=== PATIENT | female | born 1980 | race Caucasian/White ===

== ENCOUNTER → 2020-10-03 10:13 | Outpatient (BNVA) | payer MEDICAID, SELFPAY | PROVIDERS: PCP Nurse Practitioner Family; Visit Provider Physician Assistant | DX: E66.01 Morbid (severe) obesity due to excess calories (principal); Z68.42 Body mass index [BMI] 45.0-49.9, adult; R19.7 Diarrhea, unspecified; E03.9 Hypothyroidism, unspecified; Z71.3 Dietary counseling and surveillance | CPT/HCPCS: 99202; 99211 ==

== ENCOUNTER 2020-10-03 16:11 | Outpatient (REF) | payer MEDICAID, SELFPAY ==
[2020-10-04 14:17] LABS: H Pylori Breath Test NOT DETECTED (NOT DETECTED)
== END 2020-10-03 16:12 | disposition home or self-care (01) ==
LOC: HO.LNP 16:11
PROVIDERS: Visit Provider Physician Assistant
DX: Z01.818 Encounter for other preprocedural examination (principal); E66.01 Morbid (severe) obesity due to excess calories
CPT/HCPCS: 83013

== ENCOUNTER 2020-10-18 09:54 | Outpatient (REF) | payer MEDICAID, SELFPAY ==
[2020-10-18 11:14] LABS: MANUAL DIFF FLAG NO
[2020-10-18 11:22] LABS: Basophils Percent Auto 0.5 % (0-2); Eosinophils Absolute Auto 0.1 X10*3/uL (0.0-0.4); Eosinophils Percent Auto 2.3 % (0-4); Hematocrit 39.6 % (37-47); Hemoglobin 12.2 g/dl (12.0-16.0); Imm Gran Abs Auto 0.02 X10*3/uL (0.00-0.03); Imm Gran Pct Auto 0.3 % (0.0-0.4); Lymphocytes Absolute Auto 1.4 X10*3/uL (1.2-4.9); Mean Corpuscular HGB Conc 30.8 g/dl (31.0-35.0); Mean Corpuscular Hemoglobin 26.6 pg (27.0-33.0); Mean Corpuscular Volume 86.5 fL (80-98); Mean Platelet Volume 11.4 fL (9.4-12.3); Monocytes Absolute Auto 0.4 X10*3/uL (0.1-1.2); Neutrophils Absolute Auto 4.2 X10*3/uL (2.0-8.3); Neutrophils Percent Auto 67.9 % (45-73); Platelet Count 300 X10*3/uL (160-400); Red Blood Count 4.58 X10*6/uL (4.20-5.50); Red Cell Distribution Width 14.3 % (11.0-16.0); White Blood Count 6.2 X10*3/uL (4.8-10.8)
[2020-10-18 11:40] LABS: Alanine Aminotransferase 23 U/L (0-31); Albumin Level 4.1 g/dL (3.5-5.0); Alkaline Phosphatase 81 U/L (39-117); Anion Gap 13 (12-20); Aspartate Amino Transferase 16 U/L (5-31); Bilirubin Total 0.5 mg/dL (0.0-1.0); Blood Urea Nitrogen 10 mg/dL (9-16); C Reactive Protein 2.37 mg/dL (< or = 0.50); Carbon Dioxide 23 mmol/L (22-29); Chloride 107 mmol/L (96-108); Cholesterol 208 mg/dL; Estimated Glomerular Filt Rate > 60; Glucose Random 90 mg/dL (60-115); HDL Cholesterol 59 mg/dL; Iron 42 mcg/dL (30-160); LDL Cholesterol Calculated 131 mg/dl; Percent Iron Saturation 13 % (15-50); Potassium 3.9 mmol/L (3.3-5.1); Sodium 139 mmol/L (135-145); Total Iron Binding Capacity 326 mcg/dL (228-428); Triglycerides 92 mg/dL; Unsaturated Iron Binding 284 ug/dL
[2020-10-18 11:45] LABS: Estimated Average Glucose 105 mg/dL; Hemoglobin A1c % 5.3 %
[2020-10-18 12:02] LABS: Ferritin 12 ng/mL (10-122); TSH reflex Free T4 1.25 uIU/mL (0.32-4.0); Vitamin D 25-OH Total 17.8 ng/mL (>30)
[2020-10-20 04:35] LABS: Folate 10.8 ng/mL (> or = 4.0); Vitamin B12 578 pg/mL (200-900)
[2020-10-20 11:47] LABS: Insulin Level Total 10.6 uIU/mL
[2020-10-21 10:02] LABS: PTHI 97 pg/mL (14-64)
[2020-10-21 13:17] LABS: Zinc 61 mcg/dL (60-130)
[2020-10-22 17:11] LABS: Vitamin A 37 mcg/dL (38-98)
[2020-10-24 10:07] LABS: Vitamin B1 7 nmol/L (8-30)
== END 2020-10-18 09:55 | disposition home or self-care (01) ==
LOC: HO.LAB 09:54
PROVIDERS: PCP Nurse Practitioner Family; Visit Provider Physician Assistant
DX: Z01.818 Encounter for other preprocedural examination (principal); E66.01 Morbid (severe) obesity due to excess calories
CPT/HCPCS: 36415; 80053; 80061; 82306; 82607; 82728; 82746; 83036; 83525; 83540; 83970; 84425; 84443; 84590; 84630; 85025; 86140

== ENCOUNTER → 2020-11-03 08:08 | Outpatient (BNVA) | payer MEDICAID, SELFPAY | PROVIDERS: PCP Nurse Practitioner Family; Visit Provider Dietitian, Registered | DX: E66.01 Morbid (severe) obesity due to excess calories (principal) | CPT/HCPCS: 97802 ==

== ENCOUNTER 2020-11-11 14:53 | Outpatient (REF) | payer MEDICAID, SELFPAY ==
[2020-11-12 15:27] LABS: H Pylori Breath Test NOT DETECTED (NOT DETECTED)
== END 2020-11-11 14:54 | disposition home or self-care (01) ==
LOC: HO.LNP 14:53
PROVIDERS: Physician Assistant; PCP Nurse Practitioner Family; Visit Provider Surgery
DX: Z01.818 Encounter for other preprocedural examination (principal); E66.01 Morbid (severe) obesity due to excess calories; E55.9 Vitamin D deficiency, unspecified; E03.9 Hypothyroidism, unspecified; F41.0 Panic disorder [episodic paroxysmal anxiety]; Z68.42 Body mass index [BMI] 45.0-49.9, adult; Z91.018 Allergy to other foods; Z91.010 Allergy to peanuts; Z11.0 Encounter for screening for intestinal infectious diseases; Z79.899 Other long term (current) drug therapy
CPT/HCPCS: 83013; 99211; 99212

== ENCOUNTER 2020-11-13 11:07 | Outpatient (REF) | payer MEDICAID, SELFPAY ==
--- NOTE | ~2020-11-13 | XR_ITS ---
EXAMINATION: XR CHEST CLINICAL INFORMATION: Severe mild obesity COMPARISON: April 28, 2009 TECHNIQUE: 2 views of the chest were obtained. FINDINGS: No significant abnormality is noted involving the heart, lungs, mediastinum, bony thorax or soft tissues. XR/XR chest 2V IMPRESSION: No acute disease.
--- NOTE | 2020-11-13 11:27 | ECG_ITS ---
Test Reason : MORBID OBESITY Blood Pressure : / mmHG Vent. Rate : 068 BPM Atrial Rate : 068 BPM P-R Int : 140 ms QRS Dur : 084 ms QT Int : 386 ms P-R-T Axes : 010 021 009 degrees QTc Int : 410 ms Normal sinus rhythm Possible Inferior infarct , age undetermined ; could be normal variant Borderline ECG When compared with ECG of 28-APR-2009 18:00, No significant change was found Referred By: Kiarra Wong Electronically Signed By:KHUSHI HOYT
== END 2020-11-13 11:08 | disposition home or self-care (01) ==
LOC: HO.XRAY 11:07
PROVIDERS: PCP Nurse Practitioner Family; Visit Provider Physician Assistant
DX: Z01.818 Encounter for other preprocedural examination (principal); E66.01 Morbid (severe) obesity due to excess calories
CPT/HCPCS: 71046; 93005

== ENCOUNTER → 2020-11-25 08:42 | Outpatient (BNVA) | payer MEDICAID, SELFPAY | PROVIDERS: PCP Nurse Practitioner Family; Visit Provider Dietitian, Registered | DX: E66.9 Obesity, unspecified (principal); Z68.42 Body mass index [BMI] 45.0-49.9, adult | CPT/HCPCS: 97803 ==

== ENCOUNTER → 2020-12-17 08:12 | Outpatient (BNVA) | payer MEDICAID, SELFPAY | PROVIDERS: PCP Nurse Practitioner Family; Visit Provider Dietitian, Registered | DX: E66.01 Morbid (severe) obesity due to excess calories (principal) | CPT/HCPCS: 97803 ==

== ENCOUNTER 2023-11-11 10:43 | Outpatient (REF) | payer OTHER, SELFPAY ==
[2023-11-11 11:03] LABS: MANUAL DIFF FLAG NO
[2023-11-11 11:54] LABS: Basophils Percent Auto 0.5 % (0-2); Eosinophils Absolute Auto 0.1 X10*3/uL (0.0-0.4); Eosinophils Percent Auto 2.1 % (0-4); Hematocrit 39.5 % (37.0-47.0); Imm Gran Abs Auto 0.03 X10*3/uL (0.00-0.03); Imm Gran Pct Auto 0.5 % (0.0-0.4); Lymphocytes Absolute Auto 1.2 X10*3/uL (1.2-4.9); Lymphocytes Percent Auto 20.6 % (20-40); Mean Corpuscular HGB Conc 30.4 g/dl (31.0-35.0); Mean Corpuscular Hemoglobin 24.4 pg (27.0-33.0); Mean Corpuscular Volume 80.4 fL (80.0-98.0); Monocytes Absolute Auto 0.4 X10*3/uL (0.1-1.2); Monocytes Percent Auto 7.8 % (2-11); Neutrophils Absolute Auto 3.8 x10*3/uL (2.0-8.3); Neutrophils Percent Auto 68.5 % (45-73); Platelet Count 271 X10*3/uL (160-400); Red Blood Count 4.91 X10*6/uL (4.20-5.50); Red Cell Distribution Width 17.2 % (11.0-16.0); White Blood Count 5.6 X10*3/uL (4.8-10.8)
[2023-11-11 12:22] LABS: C Reactive Protein 2.85 mg/dL (< or = 0.50); Iron 30 mcg/dL (30-160); Percent Iron Saturation 10 % (15-50); Total Iron Binding Capacity 290 mcg/dL (228-428); Unsaturated Iron Binding 260 ug/dL
[2023-11-11 12:33] LABS: Erythrocyte Sedimentation Rate 20 MM/HR (0-20)
[2023-11-11 12:42] LABS: Ferritin 11 ng/mL (10-250)
[2023-11-11 12:46] LABS: Folate 7.8 ng/mL (> or = 4.0); Vitamin B12 363 pg/mL (200-900)
[2023-11-14 20:34] LABS: Immunoglobulin A 289 mg/dL (47-310)
[2023-11-14 20:43] LABS: Gliadin Deamidated IgA Ab <1.0 U/mL; Gliadin Deamidated IgG Ab <1.0 U/mL
[2023-11-14 20:48] LABS: Transglutaminase Ab IgG <1.0 U/mL; Transglutaminase IgA <1.0 U/mL
[2023-11-19 15:33] LABS: Endomysial IgA Antibody Negative (Negative)
== END 2023-11-11 10:44 | disposition home or self-care (01) ==
LOC: HO.LAB 10:43
PROVIDERS: PCP Internal Medicine Nephrology; Visit Provider Internal Medicine
DX: R19.8 Other specified symptoms and signs involving the digestive system and abdomen (principal); D64.9 Anemia, unspecified
CPT/HCPCS: 36415; 82607; 82728; 82746; 82784; 83540; 85025; 85652; 86140; 86231; 86258; 86364

== ENCOUNTER 2024-07-27 10:58 | Day surgery (SDC) | payer OTHER, SELFPAY ==
[2024-07-25 13:58] VITALS: BMI 42.0
--- NOTE | 2024-07-26 12:21 | HO.ANESPROP2 ---
Documented by User: Vashti Lewis NP 07/26/24 12:22 HPI - Anesthesia Eval Consult details Narrative: 44yo F for Colonoscopy Anesthesia Pre-Procedure Meds Is the patient on any of the following meds?: GLP1/DPP4 PMFSH Active Problems Active Problems: All Active Problems BMI 45.0-49.9, adult (Acute) Vitamin D deficiency (Acute) Diarrhea in adult patient (Acute) Pre-op evaluation (Acute) Morbid obesity (Acute) Past Medical History Medical History Anemia C. difficile colitis Anxiety Depression Seasonal allergies Panic anxiety syndrome Hypothyroid Family History Family History Mother Diabetes Hypertension Father Heart disease Brother No problems noted. Brother No problems noted. Brother No problems noted. Sister No problems noted. Son No problems noted. Son No problems noted. Surgical History Surgical History H/O colonoscopy History of esophagogastroduodenoscopy (EGD) Hx of hemorrhoidectomy Hx of oral surgery Hx of tubal ligation Hx of section Social History Social History Are you a primary care process manager to a significant other at home: No Do you presently have visiting nurse or other home services: No Alcohol intake: former Patient Tobacco Use Status: Never used Tobacco Have you been hit, kicked, punched, or otherwise hurt by someone within the past year? If so, by whom?: No Are you DNR?: No Advance Directives: No Advance Directives Information Provided: Yes Recently lost weight without trying: No Nutrition Risks: No Nutritional Risk FDLMP: currently Meds Allergies Allergy/AdvReac Type Severity Reaction Status Date / Time nut - unspecified [nut] Allergy Unknown SWELLING Verified 07/27/24 11:16 FRUIT Allergy Unknown ITCHING Uncoded 07/27/24 11:16 Peanuts, tree nuts, fruits, Allergy Unknown Anaphylaxis Uncoded 07/27/24 11:16 so Home Medications ?Medication ?Instructions ?Recorded ?Confirmed ?Last Taken ?Type epinephrine 0.3 mg/0.3 mL 0.3 mg IM Q10M PRN Anaphylaxis 10/03/20 07/25/24 Unknown History injection, auto-injector lorazepam 0.5 mg tablet 0.5 mg PO BEDTIME PRN Anxiety 10/03/20 07/25/24 Unknown History levothyroxine 112 mcg tablet 112 mcg PO DAILY 07/25/24 07/25/24 Unknown History tirzepatide (weight loss) 12.5 12.5 mg subcut QWEEK 07/25/24 07/25/24 07/17/24 History mg/0.5 mL subcutaneous pen injector (Zepbound) Exam Height,Weight and Vital Signs: Height 5 ft 3 in Weight 107.501 kg Assessment and Plan Assessment Anesthesia Assessment: Chart Reviewed Documented by User: Charissa Sparrow MD 07/27/24 12:17 PMFSH Past Medical History Medical History Anemia C. difficile colitis Anxiety Depression Seasonal allergies Panic anxiety syndrome Hypothyroid Family History Family History Mother Diabetes Hypertension Father Heart disease Brother No problems noted. Brother No problems noted. Brother No problems noted. Sister No problems noted. Son No problems noted. Son No problems noted. Surgical History Surgical History H/O colonoscopy History of esophagogastroduodenoscopy (EGD) Hx of hemorrhoidectomy Hx of oral surgery Hx of tubal ligation Hx of section History of Problems with Anesthesia: No Social History Social History Are you a primary care process manager to a significant other at home: No Do you presently have visiting nurse or other home services: No Alcohol intake: former Patient Tobacco Use Status: Never used Tobacco Have you been hit, kicked, punched, or otherwise hurt by someone within the past year? If so, by whom?: No Are you DNR?: No Advance Directives: No Advance Directives Information Provided: Yes Recently lost weight without trying: No Nutrition Risks: No Nutritional Risk FDLMP: currently Meds Allergies Allergy/AdvReac Type Severity Reaction Status Date / Time nut - unspecified [nut] Allergy Unknown SWELLING Verified 07/27/24 11:16 FRUIT Allergy Unknown ITCHING Uncoded 07/27/24 11:16 Peanuts, tree nuts, fruits, Allergy Unknown Anaphylaxis Uncoded 07/27/24 11:16 so Home Medications ?Medication ?Instructions ?Recorded ?Confirmed ?Last Taken ?Type epinephrine 0.3 mg/0.3 mL 0.3 mg IM Q10M PRN Anaphylaxis 10/03/20 07/25/24 Unknown History injection, auto-injector lorazepam 0.5 mg tablet 0.5 mg PO BEDTIME PRN Anxiety 10/03/20 07/25/24 Unknown History levothyroxine 112 mcg tablet 112 mcg PO DAILY 07/25/24 07/25/24 Unknown History tirzepatide (weight loss) 12.5 12.5 mg subcut QWEEK 07/25/24 07/25/24 07/17/24 History mg/0.5 mL subcutaneous pen injector (Zepbound) Exam Airway Mallampati Class: III TM Dist: >3cm Neck ROM: Full Loose/Missing/Broken Teeth: No Heart: RRR Lungs: CTA Assessment and Plan Assessment Anesthesia Assessment: Anesthesia Plan Discussed Final Anesthetic Review History of Problems with Anesthesia: No NPO: Yes ASA Class: III Final Preanesthetic Review: Meds/Allgs Chart Reviewed, Consent Obtained/Reviewed and Anes Risks/Benef Reviewed Patient Risk: Intermediate Procedure Risk: Low Anesthetic Plan Anesthetic Plan: MAC: Disposition: Standard PACU
[2024-07-27 11:12] VITALS: BMI 40.5
[2024-07-27] MEDS: Lactated Ringers 1,000 ML 100 ML IVCONT (11:18)
[2024-07-27 11:25] VITALS: BP 127/84; PULSE 91; RESP 18; TEMP 36.7; O2SAT 98
[2024-07-27 13:13] VITALS: BP 117/75; PULSE 86; RESP 18; TEMP 36.9; O2SAT 100
--- NOTE | 2024-07-27 13:21 | P.BOP_ITS ---
Brief Operative Note Date of Service: 07/27/24 Pre-op diagnosis: Screening Post-op diagnosis: other (Diverticulosis) Procedure: Colonoscopy to the cecum and TI Surgeon: Js Sullivan MD Anesthesia: MAC Was an Hospital Orderly used for this Procedure?: No Estimated blood loss (mL): 0 Pathology: none sent Condition: stable Disposition: PACU
[2024-07-27 13:34] VITALS: BP 132/90; PULSE 75; RESP 18; TEMP 36.9; O2SAT 100
--- NOTE | 2024-07-27 13:40 | OP_ITS ---
DATE OF SERVICE: 07/27/2024 SURGEON: Js Sullivan MD INDICATIONS: The patient presents for evaluation of colorectal cancer screening in regard to a previous history of a serrated colon polyp. Full consent has been obtained from her for this, including risks of bleeding and perforation. PREOPERATIVE DIAGNOSIS: POSTOPERATIVE DIAGNOSIS: PROCEDURE PERFORMED: Colonoscopy to the cecum and terminal ileum. ESTIMATED BLOOD LOSS: COMPLICATIONS: ANESTHESIA: Medications used, monitored anesthesia care. ASSISTANTS: SPECIMENS: PREOPERATIVE DIAGNOSES: Personal history of a serrated colon polyp and colorectal cancer screening. POSTOPERATIVE DIAGNOSES: Personal history of a serrated colon polyp and colorectal cancer screening, occasional sigmoid diverticulosis, internal hemorrhoids. DESCRIPTION OF PROCEDURE: The patient was placed in the left lateral decubitus position. The digital rectal exam revealed no abnormalities. The Olympus video pediatric colonoscope was entered into the rectum and advanced easily to the cecum. Once in the cecum, I did identify normal-appearing cecal pouch with appendiceal orifice and a normal-appearing ileocecal valve. The terminal ileum was cannulated and appeared normal. The scope was withdrawn back in the colon. The entire cecum and ileocecal valve appeared normal. The scope was slowly withdrawn assessing all mucosal surfaces carefully. Preparation was excellent. I did not visualize any sign of polyps, colitis, nor angiodysplasia. There was an occasional diverticulum in the sigmoid colon. In the rectum, scope was retroflexed visualizing internal hemorrhoids, but no other pathology. The rectal mucosa appeared normal. The scope was straightened and withdrawn from the patient. She tolerated the procedure well and was returned to the recovery area in stable condition. IMPRESSION: 1. Internal hemorrhoids. 2. Occasional sigmoid diverticulosis. PLAN: Given her previous history, I would recommend a followup colonoscopy in 5 years for further screening. She will otherwise see me on a p.r.n. basis. She was advised to continue her fiber supplement in regard to the underlying irritable bowel syndrome. MD JAMILAH Appiah/DARY / [phone]
== END 2024-07-27 14:01 | disposition home or self-care (01) ==
PROVIDERS: PCP Internal Medicine Nephrology; Visit Provider Internal Medicine
PROC: 0DJD8ZZ Inspection of Lower Intestinal Tract, Via Natural or Artificial Opening Endoscopic (ICD-10-PCS; CPT 45378; principal; 2024-07-27 13:00)
DX: Z12.11 Encounter for screening for malignant neoplasm of colon (principal); K57.30 Diverticulosis of large intestine without perforation or abscess without bleeding; K64.8 Other hemorrhoids; Z86.0101 Personal history of adenomatous and serrated colon polyps; E03.9 Hypothyroidism, unspecified; E55.9 Vitamin D deficiency, unspecified; E66.01 Morbid (severe) obesity due to excess calories; Z68.41 Body mass index [BMI] 40.0-44.9, adult; Z79.899 Other long term (current) drug therapy
CPT/HCPCS: 45378; J2003; J2704

== ENCOUNTER 2025-01-15 09:12 | Outpatient (REF) | payer OTHER, SELFPAY ==
--- OUTSIDE RECORDS SUMMARY | 2024-07-27 09:00 | XMS_ITS ---
Author Organization [facility] Address [address] [place] [address] Care Team Providers Care Wheat Cleaner Name Role Phone Timothy Loving M.D Primary Care Provider Js Roblero [phone] REASON FOR VISIT screening,serrated polyp of colon Encounters Encounter Location Date Provider Diagnosis [facility] Outpatient [address] [place], [place] [id number] 07/27/2024 Js Sullivan Colon cancer scree cathryn Z12.11 ; Personal history of colonic polyps Z86.0100 ; Diverticulosis of large intestine without perforation or abscess without bleeding K57.30 and Other hemorrhoids K64.8 Assessments Encounter Date Diagnosis (ICD Code) Assessment Notes Treatment Notes Treatment Clinical Notes Section Notes 07/27/2024 Colon cancer screening (ICD-10 - Z12.11) 07/27/2024 Personal history of colonic polyps (ICD-10 - Z86.0100) 07/27/2024 Diverticulosis of large intestine without perforation or abscess without bleeding (ICD-10 - K57.30) 07/27/2024 Other hemorrhoids (ICD-10 - K64.8) Plan Of Treatment No Information Progress Notes * VIOLETTA MADSENDOB:1980 (44 yo F)Acc No.[id number]:07/27/2024 COLON WITH MAC Patient: Brittany ALSTONCELIA VIOLETTA Provider: Brittany Sullivan MD :1980 A ge:44 Y S ex:Female Date:07/27/2024 Address:[address] [place], [place] [id number] Pcp:Timothy Loving M.D Subjective: * Chief Complaints: * 1 . Screening,serrated polyp of colon. * Medical History: Objective: * Vitals: Assessment: * Assessment: 1. C olon cancer screening - Z12.11 (Primary) 2 . P ersonal history of colonic polyps - Z86.0100 3 . D iverticulosis of large intestine without perforation or abscess without bleeding - K57.30 4 . O ther hemorrhoids - K64.8 ? Plan: * Treatment: * Procedure Codes: 4 5378 DIAGNOSTIC COLONOSCOPY, Modifiers: 33 , 0529F INTRVL 3+YRS PTS CLNSCP DOCD, 0528F RCMND FLW-UP 10 YRS DOCD * * The named appointment provid er may or may not be the originator of this progress note, and it is not deemed complete until electronically signed by the appointment provider. Sign off status: Pending * Provider: Brittany Sullivan MD Date: 0 07/27/2024 Generated for Rashid pimentel/Vj/Kikaitting on: 0 01/15/2025 10:37 AM EDT
--- NOTE | ~2025-01-15 | US_ITS ---
EXAMINATION: US TRIPLEX LOWER EXTREMITY, LEFT CLINICAL INFORMATION: post foam injection COMPARISON: None available. TECHNIQUE: Color-flow triplex imaging with spectral analysis and compression Doppler were performed on the left lower extremity. FINDINGS: Respiratory variation, normal compression and augmented flow are noted throughout the left lower extremity. The visualized common femoral vein, superficial femoral vein, profunda femoral vein, popliteal vein and midcalf peroneal and posterior tibial venous segments show no evidence of deep venous thrombosis. No reflux was demonstrated in the greater saphenous vein in the thigh post treatment. US/US venous duplex LE LT IMPRESSION: No evidence of deep venous thrombosis involving the left lower extremity. No greater saphenous vein reflux. Electronically signed by: Gabe Casas MD 01/15/2025 09:56 AM EDT
--- OUTSIDE RECORDS SUMMARY | 2025-01-15 10:37 | XMS_ITS | Encounter Summary ---
Author Organization [facility] Address [address] [facility] [address] [place] [address] Phone Care Team Providers Care Director Broadcast Name Role Phone Juan Reyes MD Primary Care Provider Kylie Harding MD Unavailable [phone] Juan Reyes MD Unavailable Darlyn Lockett DRUM REEL CUTTER Primary Care Provider Varun Funez MD, MPH Unavailable [phone] Austen Shi MD Unavailable Daiana Britt MD Unavailable + Varun Funez MD, MPH Unavailable Reason for Referral * MRI/CAT Scan - Closed Specialty Diagnoses / Procedures Referred By Jaquan t Referred To Contact Radiology Diagnoses Facial numbness Numbness of arm Procedures MRI Brain Miguel Walker MD Phone: tel: fax: [email or web address] Referral ID Status Reason Start Date Expiration Date Visits Re quested Visits Authorized [id number] Closed 08/04/2017 08/04/2018 1 1 Encounter Details Date Type Department Care Team (Late st Contact Info) Description 07/27/2017 Ancillary Orders Virtual Department [address] [place] [address] Miguel Walker MD [address] [place] [address], [address] [place], [place] [id number] [email or web address] Facial numbness; Numbness of arm Social History Tobacco Use Types Packs/Day Years Used Date Smoking Tobacco: Never Assessed Comments Unknown Sex and Gender Information Value Date Recorded Sex Assigned at Female 08/12/2017 5:10 PM EDT Legal Sex Female 9:20 PM EDT Gender Identity Female 08/12/2017 5:10 PM EDT Sexual Orientation Straight 08/12/2017 5: 10 PM EDT documented as of this encounter Plan of Treatment Not on file documented as of this encounter Results * MRI BRAIN WITHOUT CONTRAST (08/09/2017 10:22 AM EDT) Anatomical Region Laterality Modality Head Magnetic Resonan ce 08/09/2017 11:5 6 AM EDT Impressions 08/09/2017 12:01 PM EDT Normal MRI appearance of the brain. No evidence of demyelinating disease nor other explanation of facial/upper extremity numbness. POS - [id number] Narrative 08/09/2017 12:01 PM EDT TECHNIQUE: 1.5 Aissatou high-field MRI scanner. Axial T1, T2, T2*, T2 FLAIR and diffusion-weighted imaging with ADC map, sagittal FLAIR and T1 sequences were obtained. No comparison FINDINGS: No signal changes suggestive of demyelinating disease in either hemisphere or the posterior fossa. No signal abnormalities indicative of ischemia, infarct, hemorrhage, mass or an inflammatory process. Normal ventricular size and configuration. Basilar cisterns widely patent. No evidence of elevated intracranial pressure. No pituitary, pineal region or intraorbital pathology. Normal flow-voids in the major vessels of the [place]. Visualized proximal cranial nerves are unremarkable. No inflammatory changes in the paranasal sinuses or mastoid air cells. Procedure Note Timothy Mack MD - 08/09/2017 TECHNIQUE: 1.5 Aissatou high-field MRI scanner. Axial T1, T2, T2*, T2 FLAIR and diffusion-weighted imaging with ADC map,sagittal FLAIR and T1 sequences were obtained. No comparison FINDINGS: No signal changes suggestive of demyelinating disease in either hemisphereor the posterior fossa. No signal abnormalities indicative of ischemia, infarct, hemorrhage, massor an inflammatory process. Normal ventricular size and configuration. Basilar cisterns widely patent.No evidence of elevated intracranial pressure. No pituitary, pineal region or intraorbital pathology. Normal flow-voids in the major vessels of the [place]. Visualized proximal cranial nerves are unremarkable. No inflammatory changes in the paranasal sinuses or mastoid air cells. IMPRESSION: Normal MRI appearance of the brain. No evidence of demyelinating diseasenor other explanation of facial/upper extremity numbness. POS - [id number] Miguel Walker MD IMG MR HEAD/NECK Final Resul t documented in this encounter Visit Diagnoses Diagnosis Facial numbness Disturbance of skin sensation Numbness of arm Disturbance of skin sensation Facial numbness Disturbance of skin sensation Numbness of arm Disturbance of skin sensation documented in this encounter Additional Health Concerns Infection Onset Date Last Indicated Resolved Time C. diff 09/29/2020 09/29/2020 10/29/2020 1:26 AM EDT documented as of this encounter Care Teams Director Broadcast Relationship Specialty Start Date End Date Juan Reyes MD PCP - General 02/22/17 02/11/18 Darlyn Lockett NP [address] [place] [address] PCP - General Family Medicine 02/12/18 Kylie Harding MD [address] [place] [address] Insurance Assigned Provider 08/06/17 09/10/17 Juan Reyes MD [address] [place] [address] [email or web address] Insurance Assigned Provider 09/10/17 09/09/18 Varun Funez MD, MPH [address] [place] [address] Insurance Assigned Provider 11/15/20 03/14/21 Austen Shi MD [address] [phone] [email or web address] Insurance Assigned Provider 03/14/21 07/12/21 Daiana Britt MD [address] [place] [id number] [email or web address] Insurance Assigned Provider 07/12/21 07/17/22 Varun Funez MD, MPH [address] [place] [address] Insurance Assigned Provider 07/17/22 01/15/23 documented as of this encounter Additional Source Comments The information contained in this document represents components of the legal health record. It is not the complete legal health record.[facility]
--- OUTSIDE RECORDS SUMMARY | 2025-01-15 10:37 | XMS_ITS | Encounter Summary ---
Author Organization [facility] Address [address] [facility] [address] [place] [address] Phone Care Team Providers Care Forensic Artist Name Role Phone Darlyn Lockett NP Primary Care Provider [phone] Varun Funez MD, MPH Unavailable [phone] Austen Shi MD Unavailable Daiana Britt MD Unavailable + Varun Funez MD, MPH Unavailable [phone] Encounter Details Date Type Department Care Team (Late st Contact Info) Description 10/02/2019 Procedure Pass [facility] Endoscopy Admitting Dept Virtual Department [address] [place] [address] Social History Tobacco Use Types Packs/Day Years Used Date Smoking Tobacco: Never Smokeless Tobacco: Never Alcohol Use Standard Drinks/Week Comments No 0 (1 standard drink = 0.6 oz pur e alcohol) Comments No Sex and Gender Information Value Date Recorded Sex Assigned at Female 08/12/2017 5:10 PM EDT Legal Sex Female 9:20 PM EDT Gender Identity Female 08/12/2017 5:10 PM EDT Sexual Orientation Straight 08/12/2017 5: 10 PM EDT documented as of this encounter Plan of Treatment Not on file documented as of this encounter Visit Diagnoses Not on filedocumented in this encounter Additional Health Concerns Infection Onset Date Last Indicated Resolved Time C. diff 09/29/2020 09/29/2020 10/29/2020 1:26 AM EDT documented as of this encounter Care Teams Forensic Artist Relationship Specialty Start Date End Date Darlyn Lockett IMPROVEMENT ANALYST PCP - General Family Medicine 02/12/18 Varun Funez MD, MPH [address] [place] [address] Insurance Assigned Provider 11/15/20 03/14/21 Austen Shi MD [address] [phone] [email or web address] Insurance Assigned Provider 03/14/21 07/12/21 Daiana Britt MD [address] [place] [address] [email or web address] Insurance Assigned Provider 07/12/21 07/17/22 Varun Funez MD, MPH [address] [place] [address] Insurance Assigned Provider 07/17/22 01/15/23 documented as of this encounter Additional Source Comments The information contained in this document represents components of the legal health record. It is not the complete legal health record.[facility]
--- OUTSIDE RECORDS SUMMARY | 2025-01-15 10:37 | XMS_ITS | Encounter Summary ---
Author Organization [facility] Address [address] [facility] [address] [place] [address] Phone Care Team Providers Care Jinrikisha Driver Name Role Phone Juan Reyes MD Primary Care Provider [phone] Kylie Harding MD Unavailable Juan Reyes MD Unavailable Darlyn Lockett CHINESE MEDICINE PRACTITIONER Primary Care Provider Varun Funez MD, MPH Unavailable Austen Shi MD Unavailable Daiana Britt MD Unavailable + Varun Funez MD, MPH Unavailable Encounter Details Date Type Department Care Team (Late st Contact Info) Description 07/27/2017 Procedure Pass [address] [address] Social History Tobacco Use Types Packs/Day Years [...] documented as of this encounter Care Teams Jinrikisha Driver Relationship Specialty Start Date End Date Juan Reyes MD [email or web address] PCP - General 02/22/17 02/11/18 Darlyn Lockett NP [address] [place] [address] PCP - General Family Medicine 02/12/18 Kylie Harding MD [address] [place] [address] [email or web address] Insurance Assigned Provider 08/06/17 09/10/17 Juan Reyes MD [address] [place] [address] [email or web address] Insurance Assigned Provider 09/10/17 09/09/18 Varun Funez MD, MPH [address] [place] [address] [email or web address] Insurance Assigned Provider 11/15/20 03/14/21 Austen Shi MD [address] [facility] [address] [place] [phone] [email or web address] Insurance Assigned Provider 03/14/21 07/12/21 Daiana Britt MD [address] [place] [address] [email or web address] Insurance Assigned Provider 07/12/21 07/17/22 Vaurn Funez MD, MPH [address] [place] [phone] Insurance Assigned Provider 07/17/22 01/15/23 documented as of this encounter Additional Source Comments The information contained in this document represents components of the legal health record. It is not the complete legal health record.[facility]
--- OUTSIDE RECORDS SUMMARY | 2025-01-15 10:38 | XMS_ITS | Encounter Summary ---
Author Organization [facility] Address [address] [facility] [address] [place] [address] Phone Care Team Providers Care Liquid Waste Treatment Plant Operator Name Role Phone Darlyn Lockett NP Primary Care Provider [phone] Varun Funez MD, MPH Unavailable [phone] Austen Shi MD Unavailable Daiana Britt MD Unavailable + Varun Funez MD, MPH Unavailable [phone] Encounter Details Date Type Department Care Team (Latest Contact Info) Description 10/16/2019 Transcribe Orders Virtual Department [address] [place] [address] Darlyn Lockett, SPINNING FRAME CLEANER [address] [place] [address] Unspecified lump in the left breast, unspecified quadrant (Primary Dx) Social History Tobacco Use Types Packs/Day Years [...] documented as of this encounter Results * BI US BREAST LIMITED (LEFT) (10/25/2019 1:39 PM EDT) Anatomical Region Laterality Modality Breast Left, Breast Bilateral Left Ul trasound 10/25/2019 1:02 PM EDT Impressions 10/25/2019 1:36 PM EDT RIGHT BREAST: Negative, no evidence of malignancy. LEFT BREAST: Negative, no evidence of malignancy. In particular, no mammographic or sonographic abnormality at the location of the palpable concern. Clinical follow-up is recommended. Please note that palpable concerns should be evaluated independent of imaging findings. Recommendation: Screening mammogram at the age of [age] years old. Bi-RADS: BI-RADS CATEGORY: 1 - Negative. DENSITY: There are scattered fibroglandular densities. POS - [id number] Narrative 10/25/2019 1:36 PM EDT History: Left breast mass at 2 to 3 o'clock position per requisition. However, the patient points to the palpable concern at 7 to 8 o'clock position. STUDIES: 1. Bilateral diagnostic mammography with tomosynthesis and CAD 2. Targeted ultrasound of the left breast TECHNIQUE: Bilateral full-field digital diagnostic mammography is obtained and read in conjunction with computer-aided detection. Tomosynthesis as well as 2-D C view imaging were obtained. COMPARISON: No priors. This is a baseline study. BREAST COMPOSITION: There are scattered areas of fibroglandular density RIGHT BREAST: No significant masses, calcifications or other abnormalities are seen. LEFT BREAST: No significant masses, calcifications or other abnormalities are seen. In particular, no mammographic abnormality adjacent to the triangular skin marker placed in the lower inner quadrant of the left breast. Targeted ultrasound of left breast was performed at the location of the palpable concern indicated by the patient at 7 to 8 o'clock position at approximately 4 cm from the nipple as well as at 2-3 o'clock per requisition. The survey of the entire upper outer quadrant and lower inner quadrants did not reveal abnormal sonographic findings. Only normal breast tissue seen. Darlyn Lockett NP IMG US BREAST Final Result * BI MAMMOGRAM DIAGNOSTIC WITH TOMOSYNTHESIS WITH CAD (BILATERAL) (10/25/2019 1:12 PM EDT) Anatomical Region Laterality Modality Breast Left, Breast Right, Breast Bilateral Bila teral Mammography 10/25/2019 1:02 PM EDT Impressions 10/25/2019 1:36 PM EDT RIGHT BREAST: Negative, no evidence of malignancy. LEFT BREAST: Negative, no evidence of malignancy. In particular, no mammographic or sonographic abnormality at the location of the palpable concern. Clinical follow-up is recommended. Please note that palpable concerns should be evaluated independent of imaging findings. Recommendation: Screening mammogram at the age of [age] years old. Bi-RADS: BI-RADS CATEGORY: 1 - Negative. DENSITY: There are scattered fibroglandular densities. POS - [id number] Narrative 10/25/2019 1:36 PM EDT History: Left breast mass at 2 to 3 o'clock position per requisition. However, the patient points to the palpable concern at 7 to 8 o'clock position. STUDIES: 1. Bilateral diagnostic mammography with tomosynthesis and CAD 2. Targeted ultrasound of the left breast TECHNIQUE: Bilateral full-field digital diagnostic mammography is obtained and read in conjunction with computer-aided detection. Tomosynthesis as well as 2-D C view imaging were obtained. COMPARISON: No priors. This is a baseline study. BREAST COMPOSITION: There are scattered areas of fibroglandular density RIGHT BREAST: No significant masses, calcifications or other abnormalities are seen. LEFT BREAST: No significant masses, calcifications or other abnormalities are seen. In particular, no mammographic abnormality adjacent to the triangular skin marker placed in the lower inner quadrant of the left breast. Targeted ultrasound of left breast was performed at the location of the palpable concern indicated by the patient at 7 to 8 o'clock position at approximately 4 cm from the nipple as well as at 2-3 o'clock per requisition. The survey of the entire upper outer quadrant and lower inner quadrants did not reveal abnormal sonographic findings. Only normal breast tissue seen. Darlyn Lockett NP IMG MG EXAMS Final Result documented in this encounter Visit Diagnoses Diagnosis Unspecified lump in the left breast, unspecified quadrant- Primary Unspecified lump in the left breast, unspecified quadrant Unspecified lump in the left breast, unspecified quadrant documented in this encounter Additional Health Concerns Infection Onset Date Last Indicated Resolved Time C. diff 09/29/2020 09/29/2020 10/29/2020 1:26 AM EDT documented as of this encounter Care Teams Liquid Waste Treatment Plant Operator Relationship Specialty Start Date End Date Darlyn Lockett SPINNING FRAME CLEANER PCP - General Family Medicine 02/12/18 Varun Funez MD, MPH [address] [place] [address] Insurance Assigned Provider 11/15/20 03/14/21 Austen Shi MD [address] [phone] [email or web address] Insurance Assigned Provider 03/14/21 07/12/21 Daiana Britt MD [address] [place] [address] [email or web address] Insurance Assigned Provider 07/12/21 07/17/22 Varun Funez MD, MPH [address] [place] [address] Insurance Assigned Provider 07/17/22 01/15/23 documented as of this encounter Additional Source Comments The information contained in this document represents components of the legal health record. It is not the complete legal health record.[facility]
--- OUTSIDE RECORDS SUMMARY | 2025-01-15 10:38 | XMS_ITS | Encounter Summary ---
Author Organization [facility] Address [address] [place] [address] [place] [address] Phone Care Team Providers Care Crane Hoist Or Lift Operator Name Role Phone Darlyn Lockett NP Primary Care Provider [phone] Varun Funez MD, MPH Unavailable Austen Shi MD Unavailable Daiana Britt MD Unavailable + Varun Funez MD, MPH Unavailable [phone] Encounter Details Date Type Department Care Team (Latest Contact Info) Description 05/17/2019 Transcribe Orders [facility] [address] [place] [address] Jose A Willard MD [address] [facility] [address] [place] [address] [email or web address] Iron deficiency anemia secondary to blood loss (chronic) (Primary Dx); Chronic diarrhea of unknown origin; Malabsorption due to intolerance, not elsewhere classified Social History Tobacco Use Types Packs/Day Years [...] documented as of this encounter Results * Vitamin B12 (05/17/2019 3:16 PM EST) VITAMIN B12 719 232 - 1,245 pg/mL [facility] Blood 05/17/2019 3:16 PM EST 05/17/2019 3:22 PM EST us Jose A Willard MD LAB BLOOD ORDERABLES Final R esult Performing Organization Address City/[facility]/ZIP Co de Phone Number [address] [address] * Ferritin (05/17/2019 3:16 PM EST) FERRITIN 35 13 - 150 ug/L [facility] Blood 05/17/2019 3:16 PM EST 05/17/2019 3:22 PM EST us Jose A Willard MD LAB BLOOD ORDERABLES Final R esult Performing Organization Address City/[facility]/ZIP Co de Phone Number [address] [address] * (ABNORMAL) C-Reactive Protein (05/17/2019 3:16 PM EST) C REACTIVE PROTEIN 19.8(H) 0.0 - 4.0 mg/L [facility] Blood 05/17/2019 3:16 PM EST 05/17/2019 3:22 PM EST Jose A Willard MD LAB BLOOD ORDERABLES Final R esult Performing Organization Address City/[facility]/ZIP Co de Phone Number [address] [address] * Comprehensive metabolic panel (05/17/2019 3:16 PM EST) SODIUM 141 133 - 146 mmol/L [facility] POTASSIUM 3.8 3.3 - 5.1 mmol/L [facility] CHLORIDE 102 96 - 108 mmol/L [facility] CO2 25 21 - 35 mmol/L [facility] BUN 12 6 - 19 mg/dL [facility] CREATININE 0.60 0.5 - 1.5 mg/dL [facility] GLUCOSE 83 70 - 99 mg/dL [facility] ALBUMIN 4.3 3.9 - 4.8 g/dL [facility] TOTAL PROTEIN 8.0 6.5 - 8.0 g/dL [facility] CALCIUM 9.6 8.4 - 10.3 mg/dL [facility] ALKALINE PHOSPHATASE 96 39 - 117 U/L [facility] TOTAL BILIRUBIN 0.2 0.0 - 1.2 mg/dL [facility] AST 28 0 - 37 U/L [facility] ALT 17 0 - 40 U/L [facility] GLOBULIN 3.7 1 - 4.8 g/dL [facility] EGFR 116 >59 mL/min/1.7 3m2 [facility] Comment:If patient is black, multiply result by 1.159. Estimated glomerular filtration rate calculated using the CKD-EPI equation. ANION GAP 18 10 - 20 mmol/L [facility] Blood 05/17/2019 3:16 PM EST 05/17/2019 3:22 PM EST us Jose A Willard MD LAB BLOOD ORDERABLES Final R esult Performing Organization Address City/State/[facility] Co de Phone Number [facility] [address] [place] [address] * (ABNORMAL) CBC (05/17/2019 3:16 PM EST) WBC 9.12 3.40 - 11.20 K/uL [facility] RBC 4.83(H) 3.80 - 4.80 M/uL [facility] HGB 13.4 12.0 - 15.0 g/dL [facility] HCT 42.3 36.0 - 46.0 % [facility] PLT 318 130 - 400 K/uL [facility] MCV 87.6 79.0 - 98.0 fL [facility] MCH 27.7 27.0 - 34.8 pg [facility] MCHC 31.7 31.5 - 36.0 g/dL [facility] RDW 14.2 10.8 - 14.6 % [facility] MPV 12.0 9.4 - 12.4 fl [facility] NRBC 0.00 0.00 /100 WBCs [facility] ABSOLUTE NRBC 0.00 0.00 K/uL [facility] Blood 05/17/2019 3:16 PM EST 05/17/2019 3:22 PM EST us Jose A Willard MD LAB BLOOD ORDERABLES Final R esult Performing Organization Address City/[facility]/ZIP Co de Phone Number [address] [address] * Iron and iron binding capacity (05/17/2019 3:16 PM EST) IRON 52 30 - 160 ug/dL [facility] IRON BINDING CAPACITY 329 228 - 428 ug/dL [facility] TRANSFERRIN SATURAT. 16 15 - 50 % [facility] Blood 05/17/2019 3:16 PM EST 05/17/2019 3:22 PM EST us Jose A Willard MD LAB BLOOD ORDERABLES Final R esult Performing Organization Address City/[facility] Co de Phone Number [address] [address] documented in this encounter Visit Diagnoses Diagnosis Iron deficiency anemia secondary to blood loss (chronic)- Primary Chronic diarrhea of unknown origin Diarrhea Malabsorption due to intolerance, not elsewhere classified documented in this encounter Additional Health Concerns Infection Onset Date Last Indicated Resolved Time C. diff 09/29/2020 09/29/2020 10/29/2020 1:26 AM EDT documented as of this encounter Care Teams Crane Hoist Or Lift Operator Relationship Specialty Start Date End Date Darlyn Lockett CHIEF VENDOR QUALITY PCP - General Family Medicine 02/12/18 Varun Funez MD, MPH [address] [place] [address] Insurance Assigned Provider 11/15/20 03/14/21 Austen Shi MD 230 [facility] [address] [place] [phone] [email or web address] Insurance Assigned Provider 03/14/21 07/12/21 Daiana Britt MD [address] [place] [address] [email or web address] Insurance Assigned Provider 07/12/21 07/17/22 Varun Funez MD, MPH [address] [place] [address] Insurance Assigned Provider 07/17/22 01/15/23 documented as of this encounter Additional Source Comments The information contained in this document represents components of the legal health record. It is not the complete legal health record.[facility]
--- OUTSIDE RECORDS SUMMARY | 2025-01-15 10:38 | XMS_ITS | Clinical Summary ---
Author Organization [facility] Address [address] [facility] [address] [place] [address] Phone Care Team Providers Care Lean Manufacturing Coordinator Name Role Phone Levy Darlyn B GAMBRELER HELPER Primary Care Provider Allergies Active Allergy Reactions Criticality Noted Date Comments Carrot Itching Low 08/12/2017 Egg Diarrhea Low 08/12/2017 Grass Pollen Wheezing Medium 12/20/2018 hives Other Itching Medium 10/20/2017 fruits Peanut Shortness Of Breath High 08/12/2017 Tree Nut Shortness Of Breath High 10/20/2017 Medications LORazepam (ATIVAN) 0.5 MG tablet Take 0.5 mg by mouth every 6 (six) hours as needed. Active levothyroxine (SYNTHROID, LEVOTHROID) 88 MCG tablet Take 88 mcg by mouth every morning. Active hydrocortisone (ANUSOL-HC) 2.5 % rectal cream Place rectally 2 (two) times a day. Active ferrous sulfate 325 mg (65 mg [place] iron) tabletIndications: Low iron TAKE 2 TABLETS BY MOUTH DAILY 180 tablet 1 12/26/19 Active Additional Information Patient not taking.Reported on 11/18/2021 ergocalciferol (DRISDOL) 50,000 unit capsuleIndications :Vitamin D deficiency Take 1 capsule (50,000 Units total) by mouth once a week. 13 capsule 1 12/26/19 Active Additional Information Patient not taking.Reported on 11/18/2021 docusate sodium (COLACE) 100 MG capsule Take 1 capsule (100 mg total) by mouth 2 (two) times a day. When taking pain medications 12/26/19 19 Active Additional Information Patient not taking.Reported on 11/18/2021 inulin (FIBER GUMMIES ORAL) Take 2 Doses by mouth daily. Active polyethylene glycol (MIRALAX) 17 gram/dose powder Take 17 g by mouth daily as needed. Active citalopram (CELEXA) 10 MG tablet Take 10 mg by mouth daily. Active ondansetron (ZOFRAN-ODT) 4 MG disintegrating tablet Take 1 tablet (4 mg total) by mouth every 8 (eight) hours as needed for nausea. 15 tablet 11/19/19 Active Active Problems Problem Noted Date Diagnosed Date Other insomnia 03/28/2019 SANJIV on CPAP 03/28/2019 Assessment & Plan (04/08/2019 7:37 PM EST): Work with sleep specialist/respiratory therapist/bead forming machine operator on adjusting equipment to counteract sleep apnea and yet not increase anxiety Muscle twitching 03/28/2019 Assessment & Plan (04/08/2019 7:42 PM EST): Keep well-hydrated. Eat well-balanced nutritionally diet, rich in vitamins, micro-and ultra-elements important in proper muscle function. Gentle, regular stretching and muscle strengthening exercises. Anxiety 03/28/2019 Assessment & Plan (04/08/2019 7:40 PM EST): Continue working with her personal psychotherapist on improving stress management strategies and relaxation techniques to reduce her anxiety. Grade III hemorrhoids 02/01/2019 Assessment & Plan (02/01/2019 11:44 AM EDT): The patient presents back after hemorrhoidectomy done in December of this year. She has had bleeding with bowel movements and feeling lightheaded. Plan is for some blood work, rule out anemia or possible liver issues leading to hemorrhoids. Iron deficiency 10/20/2017 Bilateral carpal tunnel syndrome 10/20/2017 Chronic fatigue 08/18/2017 Assessment & Plan (04/08/2019 7:40 PM EST): Balance rest and activity. Keep regular engagement in hobbies/favorite activities. Try gentle warm pool exercise program Avoid sick contacts Pain in both hands 08/18/2017 Chronic pain of both knees 08/18/2017 Vitamin D deficiency 08/18/2017 Assessment & Plan (04/08/2019 7:38 PM EST): Continue proper supplementation to replace deficit Muscle weakness 08/18/2017 Menorrhagia with irregular cycle 08/18/2017 Panic attacks 08/18/2017 Class 3 obesity without serious comorbidity in a dult 08/18/2017 Assessment & Plan (04/08/2019 7:38 PM EST): Portion control. Limit concentrated sugars, saturated fats and calories in the diet. Keep well-hydrated. If unable to achieve expected goal consider formal dietary/nutritional support. Encounters Date Type Department Care Team Description 11/22/2024 8:45 AM EDT - 11/22/2024 11:59 PM EDT Hospital Encounter [facility] [address] [place] [address] Alla Emmanuel, GAMBRELER HELPER Discharge Disposition: Home or Self Care from Last 3 Months Family History Medical History Relation Comments Breast cancer Neg Hx Social History Tobacco Use Types Packs/Day Years Used Date Smoking Tobacco: Never Smokeless Tobacco: Never Alcohol Use Standard Drinks/Week Comments No 0 (1 standard drink = 0.6 oz pur e alcohol) Education Answer Date Recorded Are you interested in more education? Not on chelita e 09/03/2022 Are you concerned about learning? Not on file 09/03/2022 No 09/03/2022 No 09/03/2022 Digital Access Answer Date Recorded No 10/01/2022 No 10/01/2022 No 10/01/2022 Reliable internet access at home? Not on file 10/01/2022 Device with a working camera? Not on file Comments No Sex and Gender Information Value Date Recorded Sex Assigned at Female 08/12/2017 5:10 PM EDT Legal Sex Female 9:20 PM EDT Gender Identity Female 08/12/2017 5:10 PM EDT Sexual Orientation Straight 08/12/2017 5: 10 PM EDT Last Filed Vital Signs Vital Sign Reading Time Taken Comments Blood Pressure 137/92 11/18/2021 4:10 PM EDT Pulse 85 11/18/2021 4:10 PM EDT Temperature 37.1 C (98.8 F) 11/18/2021 4:10 PM EDT Respiratory Rate 18 11/18/2021 4:10 PM EDT Oxygen Saturation 96% 11/18/2021 4:10 PM EDT Inhaled Oxygen Concentration - - Weight 121.7 kg (268 lb 6.4 oz) 10/24/2020 4:09 PM EDT Height 160 cm (5' 2.99 ) 10/24/2020 4:09 PM EDT Body Mass Index 47.56 10/24/2020 4:09 PM EDT Plan of Treatment Health Maintenance Due Date Last Done Comments Adult Td,Tdap Booster 1980 DEPRESSION SCREENING 1993 HIV ONE-TIME SCREENING (18-6 5 YEARS) 1999 TSH LEVEL 03/28/2020 03/28/2019, 04/03/2018 MAMMOGRAM 10/24/2021 10/25/2019 INFLUENZA VACCINE (#1) 2024 COVID-19 VACCINE (3 - 2024-2 6 season) 2025 11/24/2021, 11/03/2021 PAP SMEAR 11/23/2027 11/22/2024, 07/02/2019 SMOKING STATUS SCREENING (On ce After 26 Yrs) Completed 10/24/2020 HEPATITIS C SCREENING Completed 01/21/2021 HEPATITIS A VACCINES Aged Out No long er eligible based on patient's age to complete this topic HIB VACCINES Aged Out No longer eligi ble based on patient's age to complete this topic MENINGOCOCCAL VACCINES (ACWY) Aged Out No longer eligible based on patient's age to complete this topic MENINGOCOCCAL VACCINES (B) Aged Out N o longer eligible based on patient's age to complete this topic PNEUMOCOCCAL VACCINES (0-49 years) Aged Out No longer eligible b ased on patient's age to complete this topic Medical Devices Not on file Procedures Procedure Name Priority Date/Time Associated Diagnosis Comments PAP TEST Routine 11/22/2024 12:00 AM EDT BI MAMMOGRAM DIAGNOSTIC WITH TOMOSYNTHESIS WITH CAD (BILATERAL) Routine 10/25/2019 1:12 PM EDT Unspecified lump in the left breast, unspecified quadrant TSH Routine 03/28/2019 8:35 AM EST Chronic fatigue from Last 3 Months or Most Recently Relevant to Health Maintenance Results * Pap Test (11/22/2024 12:00 AM EDT) 11/22/2024 11/27/2024 9:3 6 AM EDT Narrative SEE NARRATIVE - 12/03/2024 8:42 [place] [address] Innovation Manager: Dave Bean MD TRANSFER IRON OPERATOR Cytology Report FINAL DIAGNOSIS A. PAP SMEAR (THIN PREP) CE: SPECIMEN ADEQUACY: Satisfactory for evaluation; transformation zone absent/insufficient. INTERPRETATION: NEGATIVE FOR INTRAEPITHELIAL LESION OR MALIGNANCY. This specimen was analyzed by the automated ThinPrep Imaging System ([employer] and the selected dubois were reviewed by a notch grinder. Electronically Signed Out By: JOHANN Olmstead(ASCP) The Pap test is a screening test primarily for squamous cancers and precursors and has associated false-negative and false-positive results. New technologies such as liquid-based preparations may decrease but will not eliminate all false-negative results. Regular sampling and follow-up of unexplained clinical signs and symptoms are recommended to minimize false negative results. CLINICAL HISTORY Date of Last Menstrual Period: Not Provided Menstrual History: Unknown Other Clinical Conditions: Screening Pap SPECIMEN SOURCE A: PAP SMEAR (THIN PREP) CE Patient Name: NO ARCHER : 1980 (Age: 44) Sex: F Institution: [facility] Location: [facility] Date of Collection: 11/22/2024 Date of Reported: 12/03/2024 08:42 Results to: Alla Emmanuel MSN, BSN us Alla Emmanuel GAMBRELER HELPER CYTOLOGY ORDERABLES Final Re sult SEE NARRATIVE * BI MAMMOGRAM DIAGNOSTIC WITH TOMOSYNTHESIS WITH [...] There are scattered fibroglandular densities. POS - [id number] Narrative 10/25/2019 1:36 PM EDT History: Left [...] Lockett NP IMG MG EXAMS Final Result * TSH (03/28/2019 8:35 AM EST) TSH 1.72 0.27 - 4.20 uIU/mL [facility] Blood 03/28/2019 8:35 AM EST 03/28/2019 10:28 AM EST Shira Pineda MD LAB BLOOD ORDERABLES Fin al Result [facility] [address] [place] [address] from Last 3 Months or Most Recently Relevant to Health Maintenance Insurance ACO ACO ACO ACO ACO ACO Care Teams Lean Manufacturing Coordinator Relationship Specialty Start Date End Date Darlyn Lockett NP PCP - General Family Medicine 02/12/18 Additional Source Comments The information contained in this document represents components of the legal health record. It is not the complete legal health record.[facility]
--- OUTSIDE RECORDS SUMMARY | 2025-01-15 10:38 | XMS_ITS | Encounter Summary ---
Author Organization [facility] Address [address] [facility] [address] [place] [address] Phone Care Team Providers Care Knitting Machine Fixer Head Name Role Phone Darlyn Lockett NP Primary Care Provider [phone] Varun Funez MD, MPH Unavailable [phone] Austen Shi MD Unavailable Daiana Britt MD Unavailable + Varun Funez MD, MPH Unavailable [phone] Encounter Details Date Type Department Care Team (Late st Contact Info) Description 12/21/2018 Procedure Pass [place] Admitting Dept - [facility] [address] [place] [id number] Social History Tobacco Use Types Packs/Day Years [...] documented as of this encounter Care Teams Knitting Machine Fixer Head Relationship Specialty Start Date End Date Darlyn Lockett DRAFTER TOPOGRAPHICAL PCP - General Family Medicine 02/12/18 Varun Funez MD, MPH [address] [place] [address] Insurance Assigned Provider 11/15/20 03/14/21 Austen Shi MD [address] [phone] [email or web address] Insurance Assigned Provider 03/14/21 07/12/21 Daiana Britt MD [address] [place] [address] [email or web address] Insurance Assigned Provider 07/12/21 07/17/22 Varun Funez MD, MPH [address] [place] [address] Insurance Assigned Provider 07/17/22 01/15/23 documented as of this encounter Additional Source Comments The information contained in this document represents components of the legal health record. It is not the complete legal health record.[facility]
--- OUTSIDE RECORDS SUMMARY | 2025-01-15 10:38 | XMS_ITS | Patient Health Record ---
Author Organization [facility] Address [address] [place] [address] Care Team Providers Care Paint Spraying Machine Operator Helper Name Role Phone Timothy Loving M.D Primary Care Provider Js Roblero [phone] Allergies Allergen (clinical drug ingredient) Drug/Non Drug Allergy documented on EMR Reaction Allergy Type Onset Date Status nuts,peanuts, some fruits and veggies (uncoded) Unknown Allergy Active Reason For Referral No Information Medications Medication SIG (Take, Route, Frequency, Duration) Notes Start Date End Date Status EpiPen Not-Taking Levothyroxine Sodium 112 MCG TAKE 1 TABLET BY MOUTH ONCE DAILY Oral for 90 Active LORazepam 0.5 MG Oral for 10 PRN A ctive Zepbound 2.5 MG/0.5ML INJECT 2.5 MG SUBCUTANEOUSLY ONCE A WEEK Subcutaneous for 28 10/21/2023 Active Iron (Ferrous Sulfate) 325 (65 Fe) MG 1 tablet Orally as directed Not-Taking Vitamin D Active Social History Tobacco Use: Social History Observation Description Date Details (start date - stop date) Never Smoker NA - NA Tobacco Use/Smoking Question Answer Notes Patient is a nonsmoker Alcohol Screen Question Answer Notes Did you have a drink containing alcohol in the p ast year? No Points 0 Interpretation Negative Section Notes: Nonsmoker; no sig alcohol Nonsmoker; no sig alcohol Problems Problem Type SNOMED Code ICD Code Onset Dates Problem Status W/U Status Risk Notes Problem Irritable bowel syndrome (96042568) Irritable bowel syndrome (K58.9) Active confirmed Problem Screening for malignant neoplasm of colon (793973246) Encounter for screening for malignant neoplasm of colon (Z12.11) Active confirmed Problem Anemia (924660769) Anemia (D64.9) Active confirmed Problem Irregular bowel habits (695834545) Irregular bowel habits (R19.8) Active confirmed Problem Serrated polyp of colon (267296548) Serrated polyp of colon (K63.5) Active confirmed Vital Signs Blood pressure diastolic 00 mm Hg 04/19/2024 Height 5 ft 3 in in 04/19/2024 Blood pressure systolic 00 mm Hg 04/19/2024 Weight 237 lbs 04/19/2024 BMI 41.98 kg/m2 04/19/2024 Encounters Encounter Location Date Provider Diagnosis [facility] [address] [place], [place] [id number] 07/27/2024 Js Sullivan Colon cancer screeni ng Z12.11 ; Personal history of colonic polyps Z86.0100 ; Diverticulosis of large intestine without perforation or abscess without bleeding K57.30 and Other hemorrhoids K64.8 [facility] [address] [place] [phone] 04/19/2024 Js Sullivan Encounter for screen ing for malignant neoplasm of colon Z12.11 ; Irritable bowel syndrome K58.9 and Serrated polyp of colon K63.5 [facility] [address] [place] [phone] 08/03/2024 Js Sullivan Assessments Encounter Date Diagnosis (ICD Code) Assessment Notes Treatment Notes Treatment Clinical Notes Section Notes 07/27/2024 Colon cancer screening (ICD-10 - Z12.11) 07/27/2024 Personal history of colonic polyps (ICD-10 - Z86.0100) 04/19/2024 Irritable bowel syndrome (ICD-10 - K58.9) Try 2 Metamucil fiber pills with a glass of water once or twice a day to help with the BM's Overall, No appears quite well. We did review her underlying history of the irregular bowel movements and what appears to be the diagnosis of irritable bowel syndrome given the negative workup in the past, her excellent clinical appearance, and her current clinical history. We also discussed that the weight loss medication that she is using can potentially cause some irregular bowel movements as well. However, she is clearly having some good benefit from that medication as she has lost about 30 pounds already. I did recommend that she try some Metamucil fiber pills once or twice a day with a lot of water to see if that works better than the fiber gummies. I did recommend a followup colonoscopy for 2024 as that will be the five-year hilario since her last colonoscopy and she does have a previous history of the serrated colon polyp. We did review the rationale for that in regard to colon cancer prevention. Full consent was obtained for this, including risks of bleeding and perforation. The procedure will be done with monitored anesthesia care. She was given the below instructions regarding adjustment of her medication for the procedure. I did advise her to contact me before the colonoscopy if she has any problems or questions I can be of assistance with. No was comfortable with this plan. Thank you again for allowing me to participate in No's care. I shall continue to keep you advised of her progress. 04/19/2024 Encounter for screening for malignant neoplasm of colon (ICD-10 - Z12.11) STOP ZEPBOUND FOR AT LEAST 7 DAYS BEFORE THE COLONOSCOPY Overall, No appears quite well. We did review her underlying history of the irregular bowel movements and what appears to be the diagnosis of irritable bowel syndrome given the negative workup in the past, her excellent clinical appearance, and her current clinical history. We also discussed that the weight loss medication that she is using can potentially cause some irregular bowel movements as well. However, she is clearly having some good benefit from that medication as she has lost about 30 pounds already. I did recommend that she try some Metamucil fiber pills once or twice a day with a lot of water to see if that works better than the fiber gummies. I did recommend a followup colonoscopy for 2024 as that will be the five-year hilario since her last colonoscopy and she does have a previous history of the serrated colon polyp. We did review the rationale for that in regard to colon cancer prevention. Full consent was obtained for this, including risks of bleeding and perforation. The procedure will be done with monitored anesthesia care. She was given the below instructions regarding adjustment of her medication for the procedure. I did advise her to contact me before the colonoscopy if she has any problems or questions I can be of assistance with. No was comfortable with this plan. Thank you again for allowing me to participate in No's care. I shall continue to keep you advised of her progress. 07/27/2024 Diverticulosis of large intestine without perforation or abscess without bleeding (ICD-10 - K57.30) 04/19/2024 Serrated polyp of colon (ICD-10 - K63.5) Overall, No appears quite well. We did review her underlying history of the irregular bowel movements and what appears to be the diagnosis of irritable bowel syndrome given the negative workup in the past, her excellent clinical appearance, and her current clinical history. We also discussed that the weight loss medication that she is using can potentially cause some irregular bowel movements as well. However, she is clearly having some good benefit from that medication as she has lost about 30 pounds already. I did recommend that she try some Metamucil fiber pills once or twice a day with a lot of water to see if that works better than the fiber gummies. I did recommend a followup colonoscopy for 2024 as that will be the five-year hilario since her last colonoscopy and she does have a previous history of the serrated colon polyp. We did review the rationale for that in regard to colon cancer prevention. Full consent was obtained for this, including risks of bleeding and perforation. The procedure will be done with monitored anesthesia care. She was given the below instructions regarding adjustment of her medication for the procedure. I did advise her to contact me before the colonoscopy if she has any problems or questions I can be of assistance with. No was comfortable with this plan. Thank you again for allowing me to participate in No's care. I shall continue to keep you advised of her progress. 07/27/2024 Other hemorrhoids (ICD-10 - K64.8) Plan Of Treatment Pending Test Test Name Order Date IRON + IBC (FE) 10/20/2023 CRP 10/20/2023 VITAMIN B12 AND FOLATE 10/20/2023 CBC w DIFF 10/20/2023 SED RATE (ESR) 10/20/2023 CELIAC PANEL #10 10/20/2023 Ferritin 10/20/2023 Future Test Test Name Order Date COLONOSCOPY 04/19/2024 Insurance Providers Payer Name Payer Address Payer Phone Subscriber Number Group Number Insured Name Patient Relationship to Insured Coverage Start Date Coverage End Date [facility] [address] [address] [place], [place] [id number] SANDI SidhuNO Self - patient is the insured Medical (General) History Medical History History ICD Code Denies [place],DM,CVA,Lung disease,renal dise ase Seasonal allergies Hypothyroidism Anxiety/depression Colonoscopy at [facility] in 2017 w ith removal of a small serrated colon polyp in the transverse colon. Biopsies from the colon and terminal ileum were unremarkable Colonoscopy at [facility] in 2019 with removal of a tiny hyperplastic polyp. C. difficile infection with relapsing course eventually successfully treated with antibiotics Anemia Upper endoscopy at [facility] in 20 17 with reported esophagitis, although I do not have that report Surgical History Surgery Date(Month/Year) Tubal ligation Oral surgery Hemorrhoidectomy
--- OUTSIDE RECORDS SUMMARY | 2025-01-15 10:38 | XMS_ITS | Encounter Summary ---
Author Organization [facility] Address [address] [facility] [address] [facility] [address] [place] [address] Phone Care Team Providers Care Sports Marketing Internship Name Role Phone Juan Reyes MD Primary Care Provider [phone] Kylie Harding MD Unavailable Juan Reyes MD Unavailable [phone] Darlyn Lockett REGRIND MILL OPERATOR Primary Care Provider Varun Funez MD, MPH Unavailable [phone] Austen Shi MD Unavailable Daiana Britt MD Unavailable + Varun Funez MD, MPH Unavailable Encounter Details Date Type Department Care Team (Latest Contact Info) Description 06/20/2017 Transcribe Orders [facility] Laboratory [address] [address] Alan Qureshi MD [address] [id number] [email or web address] Bloating (Primary Dx); Blind loop syndrome; Blood loss anemia Social History Tobacco Use Types Packs/Day Years [...] documented as of this encounter Results * (ABNORMAL) 25-OH vitamin D (06/20/2017 2:38 PM EST) 25 [place] VIT D (TOTAL) 13(L) 30 - 1,000 ng/mL [facility] Blood 06/20/2017 2:38 PM EST 06/20/2017 2:45 PM EST us Alan Qureshi MD LAB BLOOD ORDERABLES Final Re sult Performing Organization Address [facility]/ZIP Co de Phone Number [address] [address] * (ABNORMAL) Iron and iron binding capacity (06/20/2017 2:38 PM EST) IRON 38 30 - 160 ug/dL [facility] IRON BINDING CAPACITY 339 228 - 428 ug/dL [facility] TRANSFERRIN SATURAT. 11(L) 15 - 50 % [facility] Blood 06/20/2017 2:38 PM EST 06/20/2017 2:45 PM EST us Alan Qureshi MD LAB BLOOD ORDERABLES Final Re sult Performing Organization Address City/[facility]/ZIP Co de Phone Number [address] [address] * Ferritin (06/20/2017 2:38 PM EST) FERRITIN 26 13 - 150 ug/L [facility] Blood 06/20/2017 2:38 PM EST 06/20/2017 2:45 PM EST us Alan Qureshi MD LAB BLOOD ORDERABLES Final Re sult [address] [place] [address] * (ABNORMAL) C-Reactive Protein (06/20/2017 2:38 PM EST) C REACTIVE PROTEIN 2.0(H) 0 - 0.5 mg/L [facility] Blood 06/20/2017 2:38 PM EST 06/20/2017 2:45 PM EST us Alan Qureshi MD LAB BLOOD ORDERABLES Final Re sult [address] [address] * Comprehensive metabolic panel (06/20/2017 2:38 PM EST) Pathologist [facility] SODIUM 140 133 - 146 mmol/L [facility] POTASSIUM 3.9 3.3 - 5.1 mmol/L [facility] CHLORIDE 102 96 - 108 mmol/L [facility] CO2 25 21 - 35 mmol/L [facility] BUN 14 6 - 19 mg/dL [facility] CREATININE 0.60 0.5 - 1.5 mg/dL [facility] GLUCOSE 74 70 - 99 mg/dL [facility] ALBUMIN 4.3 3.9 - 4.8 g/dL [facility] TOTAL PROTEIN 7.8 6.5 - 8.0 g/dL [facility] CALCIUM 9.5 8.4 - 10.3 mg/dL [facility] ALKALINE PHOSPHATASE 103 39 - 117 U/L [facility] TOTAL BILIRUBIN 0.3 0 - 1.2 mg/dL [facility] AST 17 0 - 37 U/L [facility] ALT 11 0 - 40 U/L [facility] GLOBULIN 3.5 1 - 4.8 g/dL [facility] EGFR >60 >60 mL/min/1.7 3m2 [facility] Comment:Abnormal if <60. If patient is -[place], multiply the result by 1.21. ANION GAP 17 10 - 20 mmol/L [facility] Blood 06/20/2017 2:38 PM EST 06/20/2017 2:45 PM EST us Alan Qureshi MD LAB BLOOD ORDERABLES Final Re sult [facility] [address] [place] [address] * (ABNORMAL) CBC and differential (06/20/2017 2:38 PM EST) WBC 7.56 3.40 - 11.20 K/uL [facility] RBC 4.70 3.80 - 4.80 M/uL [facility] HGB 11.8(L) 12.0 - 15.0 g/dL [facility] HCT 38.1 36.0 - 46.0 % [facility] PLT 315 130 - 400 K/uL [facility] MCV 81.1 79.0 - 98.0 fL [facility] MCH 25.1(L) 27.0 - 34.8 pg [facility] MCHC 31.0(L) 31.5 - 36.0 g/dL [facility] RDW 16.6(H) 10.8 - 14.6 % [facility] MPV 11.5 9.4 - 12.4 fl [facility] NRBC 0.00 /100 WBCs [facility] ABSOLUTE NRBC 0.00 K/uL [facility] DIFF METHOD Auto [facility] NEUTS 65.8 45.30 - 77.70 % [facility] LYMPHS 25.5 12.30 - 39.70 % [facility] MONOS 6.9 4.10 - 12.80 % [facility] EOS 1.1 0 - 7.2 % [facility] BASOS 0.4 0 - 2.80 % [facility] Granulocytes, immature (%) 0.3 0.0 - 0.9 % [facility] ABSOLUTE NEUTS 4.98 1.40 - 7.70 K/uL [facility] ABSOLUTE LYMPHS 1.93 0.60 - 3.20 K/uL [facility] ABSOLUTE MONOS 0.52 0.11 - 0.59 K/uL [facility] ABSOLUTE EOS 0.08 0.01 - 0.50 K/uL [facility] ABSOLUTE BASOS 0.03 0.00 - 0.08 K/uL [facility] Granulocytes, immature 0.02 0.00 - 0.05 K/uL [facility] Blood 06/20/2017 2:38 PM EST 06/20/2017 2:45 PM EST Alan Qureshi MD LAB BLOOD ORDERABLES Final Re sult Performing Organization Address [facility]/ZIP Co de Phone Number [address] [address] * Tissue transglutaminase IgA (06/20/2017 2:38 PM EST) TTG IGA ANTIBODY <1.2 <4.0 (Negative) U/mL [facility] DPT OF LAB MED AND PAT+ Blood 06/20/2017 2:38 PM EST 06/21/2017 10:37 AM EST Alan Qureshi MD LAB BLOOD ORDERABLES Final Re sult Performing Organization Address [facility]/ZIP Co de Phone Number [facility] DPT OF LAB MED AND PAT+ [address] [place] [address] * Immunoglobulin A (06/20/2017 2:38 PM EST) IgA 250 70 - 400 mg/dL [facility] Blood 06/20/2017 2:38 PM EST 06/20/2017 2:45 PM EST Alan Qureshi MD LAB BLOOD ORDERABLES Final Re sult Performing Organization Address [facility]/ZIP Co de Phone Number [address] [address] documented in this encounter Visit Diagnoses Diagnosis Bloating- Primary Flatulence, eructation, and gas pain Blind loop syndrome Blood loss anemia Acute posthemorrhagic anemia documented in this encounter Additional Health Concerns Infection Onset Date Last Indicated Resolved Time C. diff 09/29/2020 09/29/2020 10/29/2020 1:26 AM EDT documented as of this encounter Care Teams Sports Marketing Internship Relationship Specialty Start Date End Date Juan Reyes MD [email or web address] PCP - General 02/22/17 02/11/18 Darlyn Lockett NP [address] [place] [address] PCP - General Family Medicine 02/12/18 Kylie Harding MD [address] [place] [address] Insurance Assigned Provider 08/06/17 09/10/17 Juan Reyes MD [address] [place] [address] Insurance Assigned Provider 09/10/17 09/09/18 Varun Funez MD, MPH [address] [place] [address] Insurance Assigned Provider 11/15/20 03/14/21 Austen Shi MD [address] [phone] [email or web address] Insurance Assigned Provider 03/14/21 07/12/21 Daiana Britt MD [address] [place] [address] [email or web address] Insurance Assigned Provider 07/12/21 07/17/22 Varun Funez MD, MPH [address] [place] [address] [email or web address] Insurance Assigned Provider 07/17/22 01/15/23 documented as of this encounter Additional Source Comments The information contained in this document represents components of the legal health record. It is not the complete legal health record.[facility]
--- OUTSIDE RECORDS SUMMARY | 2025-01-15 10:39 | XMS_ITS | Encounter Summary ---
Author Organization [facility] Address [address] [facility] [address] [place] [address] Phone Care Team Providers Care Lab Pack Chemist Name Role Phone Juan Reyes MD Unavailable [phone] Darlyn Lockett SLAGGER Primary Care Provider [phone] Varun Funez MD, MPH Unavailable Austen Shi MD Unavailable Daiana Britt MD Unavailable + Varun Funez MD, MPH Unavailable [phone] Encounter Details Date Type Department Care Team (Latest Contact Info) Description 04/03/2018 Transcribe Orders [facility] Laboratory [address] [address] Alan Qureshi MD [address] [place] [id number] [email or web address] Iron deficiency anemia, unspecified iron deficiency anemia type (Primary Dx); Chronic diarrhea of unknown origin; Obesity, unspecified classification, unspecified obesity type, unspecified whether serious comorbidity present Social History Tobacco Use Types Packs/Day Years [...] documented as of this encounter Results * Giardia antigen screen (04/14/2018 1:25 PM EST) ST GIARDIA ANTIGEN Negative Negative [facility] DPT OF LAB MED AND PAT+ Stool (Stool) 04/14/2018 1:2 5 PM EST 04/14/2018 1:27 PM EST us Alan Qureshi MD MICROBIOLOGY - GENERAL ORDERA BLES Final Result [facility] DPT OF LAB MED AND PAT+ [address] [place] [address] * (ABNORMAL) 25-OH vitamin D (04/03/2018 1:45 PM EST) 25 OH VIT D (TOTAL) 21(L) 30 - 60 ng/mL [facility] Blood 04/03/2018 1:45 PM EST 04/03/2018 1:51 PM EST us Alan Qureshi MD LAB BLOOD ORDERABLES Final Re sult Performing Organization Address City/[facility]/ZIP Co de Phone Number [address] [address] * Ferritin (04/03/2018 1:45 PM EST) FERRITIN 27 13 - 150 ug/L [facility] Blood 04/03/2018 1:45 PM EST 04/03/2018 1:51 PM EST Alan Qureshi MD LAB BLOOD ORDERABLES Final Re sult Performing Organization Address City/[facility]/ZIP Co de Phone Number [address] [address] * (ABNORMAL) TSH (04/03/2018 1:45 PM EST) Pathologist [facility] TSH 8.80(H) 0.27 - 4.20 uIU/mL [facility] Blood 04/03/2018 1:45 PM EST 04/03/2018 1:51 PM EST us Alan Qureshi MD LAB BLOOD ORDERABLES Final Re sult Performing Organization Address [facility]/ZIP Co de Phone Number [address] [address] * (ABNORMAL) Iron and iron binding capacity (04/03/2018 1:45 PM EST) Pathologist [facility] IRON 26(L) 30 - 160 ug/dL [facility] IRON BINDING CAPACITY 304 228 - 428 ug/dL [facility] TRANSFERRIN SATURAT. 9(L) 15 - 50 % [facility] Blood 04/03/2018 1:45 PM EST 04/03/2018 1:51 PM EST us Alan Qureshi MD LAB BLOOD ORDERABLES Final Re sult Performing Organization Address [facility] Co de Phone Number [address] [address] * (ABNORMAL) CBC (04/03/2018 1:45 PM EST) Pathologist [facility] WBC 5.84 3.40 - 11.20 K/uL [facility] RBC 4.87(H) 3.80 - 4.80 M/uL [facility] HGB 12.7 12.0 - 15.0 g/dL [facility] HCT 40.8 36.0 - 46.0 % [facility] PLT 250 130 - 400 K/uL [facility] MCV 83.8 79.0 - 98.0 fL [facility] MCH 26.1(L) 27.0 - 34.8 pg [facility] MCHC 31.1(L) 31.5 - 36.0 g/dL [facility] RDW 15.9(H) 10.8 - 14.6 % [facility] MPV 11.3 9.4 - 12.4 fl [facility] NRBC 0.00 0.00 /100 WBCs [facility] ABSOLUTE NRBC 0.00 0.00 K/uL [facility] Blood 04/03/2018 1:45 PM EST 04/03/2018 1:51 PM EST us Alan Qureshi MD LAB BLOOD ORDERABLES Final Re sult [facility] [address] [place] [address] documented in this encounter Visit Diagnoses Diagnosis Iron deficiency anemia, unspecified iron deficiency anemia type- Primary Chronic diarrhea of unknown origin Diarrhea Obesity, unspecified classification, unspecified obesity type, unspecified whether serious comorbidity present documented in this encounter Additional Health Concerns Infection Onset Date Last Indicated Resolved Time C. diff 09/29/2020 09/29/2020 10/29/2020 1:26 AM EDT documented as of this encounter Care Teams Lab Pack Chemist Relationship Specialty Start Date End Date Darlyn Lockett NP [address] [place] [address] PCP - General Family Medicine 02/12/18 Juan Reyes MD [address] [place] [address] [email or web address] Insurance Assigned Provider 09/10/17 09/09/18 Varun Funez MD, MPH [address] [place] [address] Insurance Assigned Provider 11/15/20 03/14/21 Austen Shi MD [address] [facility] [address] [place] [phone] [email or web address] Insurance Assigned Provider 03/14/21 07/12/21 Daiana Britt MD [address] [place] [address] [email or web address] Insurance Assigned Provider 07/12/21 07/17/22 Varun Funez MD, MPH [address] [place] [address] Insurance Assigned Provider 07/17/22 01/15/23 documented as of this encounter Additional Source Comments The information contained in this document represents components of the legal health record. It is not the complete legal health record.[facility]
== END 2025-01-15 09:13 | disposition home or self-care (01) ==
LOC: HO.US 09:12
PROVIDERS: Visit Provider Student in an Organized Health Care Education/Training Program
DX: I82.402 Acute embolism and thrombosis of unspecified deep veins of left lower extremity (principal)
CPT/HCPCS: 93971

== ENCOUNTER → 2025-01-15 09:35 | Outpatient (BNV) | payer OTHER, SELFPAY | PROVIDERS: Visit Provider Radiology Diagnostic Radiology | DX: Z03.89 Encounter for observation for other suspected diseases and conditions ruled out (principal); Z98.890 Other specified postprocedural states | CPT/HCPCS: 93971 ==

== ENCOUNTER 2025-02-20 17:10 | Outpatient (RCR) | payer OTHER, SELFPAY | END 2025-04-09 13:33 | disposition home or self-care (01) | LOC: HO.PT 17:10 | PROVIDERS: PCP Nurse Practitioner Family; Visit Provider Emergency Medicine | DX: M76.62 Achilles tendinitis, left leg (principal) | CPT/HCPCS: 97110; 97140; 97161; 97530 ==